=== PATIENT | female | born 1970 | race Caucasian/White ===

== ENCOUNTER 2018-06-16 17:38 | Emergency (ER) | payer MEDICAID ==
[~2018-06-16] VITALS: Ht 165.1 cm; Wt 61.2 kg
[2018-06-16] MEDS ORDERED: BLACK COHOSH40 M1 PO (17:50)
[2018-06-16] MEDS ORDERED: MELATONIN5 M1 PO (17:51)
[2018-06-16] MEDS ORDERED: MEDROLDOSEPACK PO (20:10)
[2018-06-16] MEDS ORDERED: NAPROSYN500 MG PO (20:10)
[2018-06-16] MEDS ORDERED: ACETAMINOPHEN-1 EAC1 PO (20:11)
[2018-06-16] MEDS ORDERED: ZANAFLEX4 MG PO (20:11)
[2018-06-16 20:26] VITALS: BP 126/73
--- NOTE | 2018-06-17 14:57 | EKG ---
[place] [address] ELECTROCARDIOGRAM REPORT Name: MENDEZ ALEGRE Room: [facility]#: [id number] Admission: 06/16/18 Attend Phys: Discharge: 06/16/18 Date of : 74 Report #: [id number] THIS REPORT FOR: //name// [facility] ED Test Date: 2018-06-16 Test Time: 20:05:01 Pat Name: MENDEZ ALEGRE Department: Room: Gender: F Bisque Ware Dipper: Loraine LOZANO : 1970 Requested By: Carol Solano Order Number: [id number] Jenni MD: Andres Clayton Measurements Intervals [place] Rate: 106 P: 75 IN: 200 QRS: 54 QRSD: 84 T: -49 QT: 327 QTc: 435 Interpretive Statements Sinus tachycardia Borderline prolonged IN interval Nonspecific T abnormalities, inferior leads Baseline wander in lead(s) V1 No previous ECG available for comparison Electronically Signed On 06-17-2018 14:57:08 SALON STYLIST by Andres Clayton [email or web address] <ELECTRONICALLY SIGNED> By: Andres Clayton MD, [facility] 06/17/18 1457 04 04 Andres Clayton MD, FACC /EPI
== END 2018-06-16 20:26 | disposition home or self-care (01) ==
LOC: M.ERS 17:38
DX: S16.1XXA Strain of muscle, fascia and tendon at neck level, initial encounter (principal); Z85.41 Personal history of malignant neoplasm of cervix uteri; X58.XXXA Exposure to other specified factors, initial encounter; Y93.89 Activity, other specified; Y92.89 Other specified places as the place of occurrence of the external cause; Y99.8 Other external cause status

== ENCOUNTER 2019-02-17 22:22 | Emergency (ER) | payer MEDICAID ==
[~2019-02-17] VITALS: Ht 165.1 cm; Wt 59.0 kg
[~2019-02-17 22:22] MED LIST: ACETAMINOPHEN-1 EAC1 PO; BLACK COHOSH40 M1 PO; MEDROLDOSEPACK PO; MELATONIN5 M1 PO; NAPROSYN500 MG PO; ZANAFLEX4 MG PO
[2019-02-17] MEDS ORDERED: OMEGA-31000 M1 PO (22:30)
[2019-02-17] MEDS ORDERED: VITAMIN E400 UNIT PO (22:30)
[2019-02-17] MEDS ORDERED: PROMETH-CODEIN 65 ML PO (22:52)
[2019-02-17] MEDS ORDERED: MAGIC MOUTHWASH SWISH&SPIT (22:52)
[2019-02-17 23:21] VITALS: BP 132/80
== END 2019-02-17 23:21 | disposition home or self-care (01) ==
LOC: M.ERS 22:22
DX: K12.1 Other forms of stomatitis (principal); F17.200 Nicotine dependence, unspecified, uncomplicated; Z85.41 Personal history of malignant neoplasm of cervix uteri

== ENCOUNTER 2019-04-07 10:50 | Emergency (ER) | payer MEDICAID ==
[~2019-04-07] VITALS: Ht 165.1 cm; Wt 59.0 kg
[~2019-04-07 10:50] MED LIST changes: +MAGIC MOUTHWASH SWISH&SPIT; +OMEGA-31000 M1 PO; +PROMETH-CODEIN 65 ML PO; +VITAMIN E400 UNIT PO
[2019-04-07 10:54] VITALS: BP 138/79
[2019-04-07] MEDS ORDERED: AZITHROMYCIN500 MG PO (11:07)
[2019-04-07] MEDS ORDERED: VENTOLIN HFA 1818 GM INH (11:07)
[2019-04-07] MEDS ORDERED: MEDROLDOSEPACK PO (11:07)
[2019-04-07] MEDS ORDERED: TESSALON PERLE100 MG PO (11:07)
== END 2019-04-07 11:18 | disposition home or self-care (01) ==
LOC: M.ERS 10:50
DX: J20.9 Acute bronchitis, unspecified (principal); Z85.41 Personal history of malignant neoplasm of cervix uteri

== ENCOUNTER 2019-06-20 20:03 | Emergency (ER) | payer OTHER, MEDICAID ==
[~2019-06-20] VITALS: Ht 165.1 cm; Wt 61.2 kg
[~2019-06-20 20:03] MED LIST changes: +AZITHROMYCIN500 MG PO; +TESSALON PERLE100 MG PO; +VENTOLIN HFA 1818 GM INH
[2019-06-20] MEDS ORDERED: NEURONTIN100 MG PO (20:12)
[2019-06-20 21:16] LABS: URINE BILIRUBIN NEGATIVE (Negative); URINE BLOOD NEGATIVE (Negative); URINE CLARITY CLEAR; URINE COLOR YELLOW; URINE GLUCOSE-RANDOM NEGATIVE (Negative); URINE KETONES NEGATIVE (Negative); URINE LEUKOCYTES-REFLEX NEGATIVE (Negative); URINE NITRITE-REFLEX NEGATIVE (Negative); URINE PROTEIN NEGATIVE (Negative); URINE SPECIFIC GRAVITY 1.015 (1.005-1.030); URINE UROBILINOGEN 0.2 E.U./dl (0.2-1.0)
[2019-06-20 21:22] LABS: AMP/METHAMP Negative (Negative); BARBITURATES Negative (Negative); BENZODIAZEPINES POSITIVE (Negative); COCAINE Negative (Negative); METHADONE Negative (Negative); OPIATES Negative (Negative); PCP Negative (Negative); THC POSITIVE (Negative)
[2019-06-20 21:27] LABS: HEMATOCRIT 38.4 % (37.0-47.0); NUCLEATED RBCS 0 /100WBC; WBC 11.1 thou/uL (4.0-11.0)
[2019-06-20 21:31] LABS: HEMOGLOBIN 13.3 gm/dL (12.0-15.0); MCH 32.3 pg (26.0-34.0); MCHC 34.6 g/dL (28.0-37.0); MCV 93.4 fL (80.0-100.0); PLATELET COUNT* 248 thou/uL (150-400); RBC 4.11 mil/uL (4.20-5.00); RDW-CV 15.1 % (10.5-14.5)
[2019-06-20 21:36] LABS: CALCIUM 9.5 mg/dL (8.5-10.1); CREATININE 0.9 mg/dL (0.6-1.3); POTASSIUM 3.6 mmol/L (3.5-5.1)
[2019-06-20 21:37] LABS: PROTIME 10.7 Seconds (9.20-11.50)
[2019-06-20 21:41] LABS: ALBUMIN 3.9 g/dL (3.4-5.0); TOTAL BILIRUBIN 0.2 mg/dL (<0.1-1.0); TOTAL PROTEIN 7.8 g/dL (6.4-8.2)
[2019-06-20 22:45] LABS: ABSOLUTE EOSINOPHILS 0.3 thou/uL (0.0-0.7); ABSOLUTE LYMPHOCYTES 5.6 thou/uL (0.8-5.3); ABSOLUTE MONOCYTES 0.6 thou/uL (0.0-1.2); ABSOLUTE NEUTROPHILS 4.7 thou/uL (1.6-8.1)
[2019-06-20 22:46] LABS: PLATELET ESTIMATE ADEQUATE
[2019-06-20] MEDS ORDERED: FLEXERIL PO (23:12)
[2019-06-20] MEDS ORDERED: HYDROCODON-ACE1 EAC8 PO (23:12)
[2019-06-20 23:53] VITALS: BP 155/82
--- NOTE | 2019-06-22 12:46 | EKG ---
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: : 1970 Requested By: Mackenzie Mercado Order Number: [id number] Jenni MD: Amari Oliveros Measurements Intervals [place] Rate: 79 P: 73 UT: 212 QRS: 81 QRSD: 97 T: 54 QT: 388 QTc: 445 Interpretive Statements Sinus rhythm Prolonged UT interval Probable left atrial enlargement Baseline wander in lead(s) III No previous ECG available for comparison Electronically Signed On 06-22-2019 12:46:21 ART EDITOR by Amari Oliveros [email or web address] <ELECTRONICALLY SIGNED> By: Amari Oliveros MD, [facility] 06/22/19 1246 30 30 Amari Oliveros MD, FACC /EPI
--- NOTE | 2019-06-22 12:47 | EKG ---
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: : 1970 Requested By: Mackenzie Mercado Order Number: [id number] Reading MD: Amari Oliveros Measurements Intervals [place] Rate: 77 P: 77 MA: 205 QRS: 85 QRSD: 101 T: 55 QT: 376 QTc: 426 Interpretive Statements Sinus rhythm Borderline prolonged MA interval Probable left atrial enlargement RSR' in V1 or V2, right VCD or RVH Electronically Signed On 06-22-2019 12:46:37 TIMBER BUCKER by Amari Oliveros [email or web address] <ELECTRONICALLY SIGNED> By: Amari Oliveros MD, [facility] 06/22/19 1246 31 31 Amari Oliveros MD, FACC /EPI
== END 2019-06-20 23:55 | disposition home or self-care (01) ==
LOC: M.ERS 20:03
PROVIDERS: Emergency Medicine
DX: S16.1XXA Strain of muscle, fascia and tendon at neck level, initial encounter (principal); Z85.41 Personal history of malignant neoplasm of cervix uteri; V49.59XA Passenger injured in collision with other motor vehicles in traffic accident, initial encounter; Y92.89 Other specified places as the place of occurrence of the external cause; Y93.89 Activity, other specified; Y99.8 Other external cause status

== ENCOUNTER 2020-03-05 13:33 | Emergency (ER) | payer MEDICAID ==
[~2020-03-05] VITALS: Ht 157.5 cm; Wt 63.5 kg
[~2020-03-05 13:33] MED LIST changes: +FLEXERIL PO; +HYDROCODON-ACE1 EAC8 PO; +NEURONTIN100 MG PO
[2020-03-05] MEDS ORDERED: SEROQUEL200 MG PO (13:39)
[2020-03-05] MEDS ORDERED: DESYREL150 MG PO (13:40)
[2020-03-05 15:18] VITALS: BP 157/79
== END 2020-03-05 15:19 | disposition home or self-care (01) ==
LOC: M.ERS 13:33
DX: H60.92 Unspecified otitis externa, left ear (principal); Z85.41 Personal history of malignant neoplasm of cervix uteri